=== PATIENT | female | born 1995 | race Hispanic/Latino ===

== ENCOUNTER 2020-05-06 09:03 | Emergency (ER) | payer BC ==
[2020-05-06] MEDS ORDERED: traMADol HCl 50 MG TAB ONE (09:32)
[2020-05-06] MEDS ORDERED: Penicillin V Potassium 250 MG TAB ONE (09:32)
== END 2020-05-06 09:40 | disposition home or self-care (01) ==
LOC: MADERS 09:03
DX: O99.613 Diseases of the digestive system complicating pregnancy, third trimester (principal); K04.7 Periapical abscess without sinus; O16.3 Unspecified maternal hypertension, third trimester; O24.419 Gestational diabetes mellitus in pregnancy, unspecified control; Z3A.32 32 weeks gestation of pregnancy
CPT/HCPCS: 99282

== ENCOUNTER 2020-06-02 16:46 | Emergency (ER) | payer BC ==
[2020-06-02] MEDS ORDERED: Acetaminophen 500 MG TAB ONE (17:15)
== END 2020-06-02 17:20 | disposition home or self-care (01) ==
LOC: MADERS 16:46
DX: O99.613 Diseases of the digestive system complicating pregnancy, third trimester (principal); K08.89 Other specified disorders of teeth and supporting structures; O24.419 Gestational diabetes mellitus in pregnancy, unspecified control; Z3A.36 36 weeks gestation of pregnancy
CPT/HCPCS: 99282

== ENCOUNTER 2020-07-05 20:49 | Emergency (ER) | payer BC, OTHER ==
[2020-07-05 21:24] LABS: Bilirubin Negative (Negative); Blood, Urine Large (Negative); Clarity Slightly Cloudy (Clear); Glucose, Urine (Dipstick) Negative (Negative); Ketone, Urine Negative (Negative); Leukocyte Moderate (Negative); Nitrite Negative (Negative); Protein, Urine (Dipstick) Negative (Neg-Trace); Urobilinogen 0.2 mg/dL (Less than 2); pH, Urine 5.5 (5.0-9.0)
[2020-07-05 21:25] LABS: Specific Gravity, Urine 1.005 (1.002-1.036)
[2020-07-05 21:32] LABS: Bacteria/HPF Rare-Few HPF (None Seen)
[2020-07-05 21:33] LABS: Pregnancy Test - Urine (BHCG) Negative (Negative); Pregu Control Background? CLEAR/WHITE (CLR/WHITE); Pregu Control Bar Appear? YES (CONTROL BAR); Specific Gravity 1.005 (1.002-1.036)
[2020-07-05] MEDS ORDERED: cefTRIAXone\\ROCEPHIN 2 GM VIAL ONE (21:43)
[2020-07-05] MEDS ORDERED: Sodium Chloride 0.9% 100 ML ONE (21:43)
[2020-07-05] MEDS ORDERED: Ibuprofen 400 MG TAB ONE (21:43)
[2020-07-05] MEDS ORDERED: Sodium Chloride 0.9% 1,000 ML ONE (21:43)
[2020-07-05 21:48] LABS: #Basophils 0.1 thou/uL (0.0-0.2); #Lymphocytes 2.3 thou/uL (1.20-3.40); #Monocytes 0.3 thou/uL (0.11-0.59); #Neutrophils 12.8 thou/uL (1.40-6.50); %Basophils 0.5 % (0.0-1.0); %Eosinophils 0.3 % (0.0-10.0); %Lymphocytes 14.9 % (21.0-51.0); %Monocytes 1.9 % (0.0-10.0); %Neutrophils 82.4 % (42.0-75.0); Hemoglobin 12.3 g/dL (12.0-16.0); Mean Corpuscular Hemoglobin 29.3 pg (27.0-31.0); Mean Corpuscular Volume 88.8 fL (78.0-98.0); Mean Platelet Volume 6.1 fL (7.4-10.4); Platelet Count 280 thou/uL (130-400); RBC Distribution Width 11.9 % (11.5-14.5); White Blood Cell (WBC) Count 15.5 thou/uL (4.8-10.8)
--- NOTE | 2020-07-05 21:50 | RAD ---
Chest one view HISTORY: Fever. FINDINGS: Cardiac silhouette and pulmonary vasculature are unremarkable. Mediastinum is midline. No confluent airspace consolidation or evidence of pneumothorax. IMPRESSION : No abnormalities are demonstrated.
[2020-07-05 22:03] LABS: ALT (SGPT) 43 U/L (8-55); AST (SGOT) 37 U/L (5-34); Albumin 4.1 g/dL (3.5-5.0); Alkaline Phosphatase 134 U/L (40-110); Anion Gap 18 mmol/L (10-20); BUN (Urea Nitrogen) 16 mg/dL (7.0-18.7); Bilirubin, Total 0.2 mg/dL (0.2-1.2); Calc. Creatinine Clearance 0 mL/min (70-130); Calcium 9.1 mg/dL (7.8-10.44); Carbon Dioxide 23 mmol/L (22-29); Chloride 103 mmol/L (98-107); Globulin 3.5 g/dL (2.4-3.5); Glucose 100 mg/dL (70-105); Protein, Total 7.6 g/dL (6.0-8.3); Sodium 140 mmol/L (136-145)
[2020-07-05] MEDS ORDERED: Clindamycin/D5W 900 mg/50 ml Premix Bag ONE (22:31)
== END 2020-07-05 23:42 | disposition home or self-care (01) ==
LOC: MADERS 20:49
DX: O86.20 Urinary tract infection following delivery, unspecified (principal); O86.4 Pyrexia of unknown origin following delivery
CPT/HCPCS: 71045; 80053; 81003; 81015; 81025; 85025; 86140; 87040; 87086; 87149; 87804; 96365; 96367; J0696; J3490; J7050

== ENCOUNTER 2020-07-28 20:07 | Emergency (ER) | payer BC, OTHER ==
[2020-07-28] MEDS ORDERED: Famotidine 20 MG TAB ONE ×3 (20:18→20:27)
[2020-07-28] MEDS ORDERED: Mag-Al Plus 1200 MG/1200 MG/120 MG/30 ML UDCUP ONE (20:18)
[2020-07-28 20:35] LABS: Clarity Clear (Clear); Specific Gravity, Urine 1.025 (1.005-1.030)
[2020-07-28 20:36] LABS: Bilirubin Negative (Negative); Blood, Urine Negative (Negative); Glucose, Urine (Dipstick) Negative (Negative); Ketone, Urine Negative (Negative); Leukocyte Negative (Negative); Nitrite Negative (Negative); Protein, Urine (Dipstick) Negative (Neg-Trace); Urobilinogen 0.2 mg/dL (Less than 2); pH, Urine 5.5 (5.0-9.0)
[2020-07-28 20:37] LABS: Pregnancy Test - Urine (BHCG) Negative (Negative); Pregu Control Background? CLEAR/WHITE (CLR/WHITE); Pregu Control Bar Appear? YES (CONTROL BAR); Specific Gravity 1.025 (1.002-1.036)
[2020-07-28] MEDS ORDERED: Ketorolac Tromethamine 30 MG/ML VIAL ONE (20:40)
== END 2020-07-28 20:53 | disposition home or self-care (01) ==
LOC: MADERS 20:07
DX: K59.00 Constipation, unspecified (principal)
CPT/HCPCS: 81003; 81025; 96372; 99284; J1885

== ENCOUNTER 2020-08-09 20:04 | Emergency (ER) | payer BC, OTHER ==
[2020-08-09] MEDS ORDERED: Ketorolac Tromethamine 30 MG/ML VIAL ONE (20:27)
[2020-08-09] MEDS ORDERED: Mag-Al Plus 1200 MG/1200 MG/120 MG/30 ML UDCUP ONE (20:27)
== END 2020-08-09 20:38 | disposition home or self-care (01) ==
LOC: MADERS 20:04
DX: R10.13 Epigastric pain (principal)
CPT/HCPCS: 96372; 99283; J1885

== ENCOUNTER 2022-01-23 00:49 | Emergency (ER) | payer MEDICAID, OTHER | END 2022-01-23 01:30 | disposition home or self-care (01) | LOC: MADERS 00:49 | DX: L50.9 Urticaria, unspecified (principal) | CPT/HCPCS: 99282 ==

== ENCOUNTER 2024-07-18 07:15 | Emergency (ER) | payer OTHER, SELFPAY ==
[2024-07-18 08:00] LABS: Pregnancy Test - Urine (BHCG) POSITIVE (Negative); Pregu Control Background? CLEAR/WHITE (CLR/WHITE); Pregu Control Bar Appear? YES (CONTROL BAR); Specific Gravity 1.024 (1.002-1.036)
[2024-07-18 08:19] LABS: Nitrite Negative (Negative)
[2024-07-18 08:20] LABS: Bilirubin Small (Negative); Glucose, Urine (Dipstick) Negative (Negative); Ketone, Urine Trace mg/dL (Negative); Protein, Urine (Dipstick) Trace mg/dL (Neg-Trace)
[2024-07-18 08:21] LABS: Blood, Urine Negative (Negative); Clarity Slightly Cloudy (Clear); Leukocyte Small (Negative); pH, Urine 6.5 (5.0-9.0)
[2024-07-18 08:24] LABS: Specific Gravity, Urine 1.024 (1.005-1.030)
[2024-07-18 08:25] LABS: Bacteria/HPF 1+ HPF (None Seen); CAUTI Indications for Culture Dysuria,urgency,freq; RBC/HPF 0-3 HPF (0-3); Squamous Epithelial 21-50 HPF (0-3); WBC/HPF 0-3 HPF (0-3)
[2024-07-18 08:26] LABS: Urine Culture Reflex No No
[2024-07-18 08:45] LABS: Band 3 % (5-11); Eosinophils 2 % (0-10); Hematocrit 35.9 % (36.0-47.0); Hemoglobin 12.2 g/dL (12.0-16.0); Lymphocytes 12 % (21-51); MDiff Complete? YES; Manual Diff?? YES; Mean Corpuscular HGB CONC 33.3 g/dL (32.0-36.0); Mean Corpuscular Hemoglobin 29.7 pg (27.0-31.0); Mean Corpuscular Volume 89.1 fl (78.0-98.0); Mean Platelet Volume 7.1 fL (7.4-10.4); Monocytes 6 % (0-10); Neutrophil 77 % (42-75); Platelet Count 268 10x3/uL (130-400); RBC Distribution Width 12.2 % (11.5-14.5); Red Blood Cell (RBC) Count 4.03 mill/uL (4.20-5.40); White Blood Cell (WBC) Count 10.9 10x3/uL (4.8-10.8)
[2024-07-18 08:46] LABS: Anisocytosis SLIGHT = 6-15 cells (100X) (0-5/hpf); PTT 33.5 sec (22.9-36.1); Platelet Adequacy Comment Appears Adequate
[2024-07-18 08:53] LABS: ALT (SGPT) 14 U/L (8-55); AST (SGOT) 15 U/L (5-34); Albumin 3.4 g/dL (3.5-5.0); Alkaline Phosphatase 53 U/L (40-110); Anion Gap 14 mmol/L (10-20); BUN (Urea Nitrogen) 5 mg/dL (7.0-18.7); Bilirubin, Total 0.4 mg/dL (0.2-1.2); Calc. Creatinine Clearance 0 mL/min (70-130); Calcium 8.9 mg/dL (7.8-10.44); Carbon Dioxide 20 mmol/L (22-29); Chloride 107 mmol/L (98-107); Estimated GFR 121; Globulin 3.4 g/dL (2.4-3.5); Glucose 90 mg/dL (70-105); Potassium 3.6 mmol/L (3.5-5.1); Protein, Total 6.8 g/dL (6.0-8.3); Sodium 137 mmol/L (136-145)
== END 2024-07-18 09:17 | disposition home or self-care (01) ==
LOC: MADERS 07:15
DX: O23.41 Unspecified infection of urinary tract in pregnancy, first trimester (principal); N39.0 Urinary tract infection, site not specified; Z3A.12 12 weeks gestation of pregnancy
CPT/HCPCS: 36415; 80053; 81001; 81025; 85025; 85610; 85730; 86900; 86901; 87086; 99283